=== PATIENT | female | born 1970 | race African-American/Black ===

== ENCOUNTER 2023-09-09 23:28 | Emergency (ER) | payer MEDICAID ==
[~2023-09-09] VITALS: Ht 170.2 cm; Wt 70.0 kg
[2023-09-09 23:47] VITALS: TEMP 98; O2SAT 100
[2023-09-09] MEDS ORDERED: KETOROLAC 30MG/ML VIAL IM STA (23:56)
[2023-09-09] MEDS: ONDANSETRON 4MG ODT PO STA (23:56)
[2023-09-10 00:49] VITALS: BP 115/49; PULSE 65; RESP 16
[2023-09-10] MEDS: MORPHINE SULFATE 4 MG/ML CPJ (NOT FOR IM USE) IV STA (00:49)
[2023-09-10 01:10] LABS: BASOPHILS % 1.7 % (0.0-2.0); EOSINOPHILS % 2.6 % (0.0-5.0); HEMATOCRIT. 32.6 % (36.0-48.0); HEMOGLOBIN. 10.4 g/dL (12.0-16.0); LYMPHOCYTES % 30.1 % (20.0-50.0); MEAN CORPUSCULAR HEMOGLOBIN 21.8 pg (28.0-32.0); MEAN CORPUSCULAR HGB CONC 31.9 g/dL (31.0-37.0); MEAN CORPUSCULAR VOLUME 68.5 fL (81.0-99.0); MEAN PLATELET VOLUME 9.9 fl (7.4-10.4); MONOCYTES % 9.5 % (2.0-8.0); NEUTROPHILS % 56.1 % (40.0-76.0); PLATELET 262 x1000/uL (130-400); RED BLOOD CELL COUNT 4.76 mill/uL (4.2-5.4); RED CELL DISTRIBUTION WIDTH 15.5 % (11.6-14.6)
[2023-09-10 01:21] LABS: ADD RBC MORPHOLOGY YES; ALANINE AMINOTRANSFERASE 24 IU/L (10-49); ALBUMIN 4.2 g/dL (3.2-4.8); ASPARTATE AMINOTRANSFERASE 20 IU/L (<34); BILIRUBIN TOTAL 0.2 mg/dL (0.1-1.0); CALCIUM 9.4 mg/dL (8.7-10.4); CARBON DIOXIDE 29 mEq/L (21-32); CHLORIDE 104 mEq/L (98-107); CREATININE 0.8 mg/dL (0.6-1.0); DIFFERENTIAL COMMENT 1; GLUCOSE 107 mg/dL (70-105); POTASSIUM 3.8 mEq/L (3.5-5.1); PROTEIN TOTAL 7.2 g/dL (6.0-8.3); SODIUM 139 mEq/L (136-145); UREA NITROGEN BLOOD 8 mg/dL (9-23)
[2023-09-10 01:53] LABS: PLATELET ESTIMATE NORMAL
[2023-09-10 03:02] LABS: HYPOCHROMASIA 1+; MICROCYTOSIS 2+
[2023-09-10] MEDS ORDERED: HYDR-4001 MT (04:09)
== END 2023-09-10 06:02 | disposition home or self-care (01) ==
LOC: ER 23:32
DX: K80.20 Calculus of gallbladder without cholecystitis without obstruction (principal)
CPT/HCPCS: 36415; 99285; 80053; 83605; 83690; 85025; 76705; 96374; Q0162; J2270; Z7610 ×2